=== PATIENT | female | born 1980 ===

== ENCOUNTER 2022-05-29 11:21 | Outpatient (REF) | payer MEDICAID, SELFPAY ==
[2022-05-29 16:21] LABS: Abs Immature Grans 0.01 10^3/uL (0.0-0.06); Absolute Basophil Count 0.05 10^3/uL (0.0-0.2); Absolute Eosinophil Count 0.45 10^3/uL (0.0-0.7); Absolute Lymphocyte Count 2.06 10^3/uL (1.2-3.4); Absolute Monocyte Count 0.43 10^3/uL (0.1-0.8); Absolute Neutrophil Count 4.22 10^3/uL (1.2-6.7); Basophils % 0.7; Eosinophils % 6.2; HCT 48.3 % (36.0-46.0); HGB 15.6 g/dL (11.2-15.7); Immature Grans % 0.1; Lymphocytes % 28.5; MCH 29.8 pg (27.0-33.0); MCHC 32.3 % (32.0-36.0); MCV 92 fL (80-95); MPV 11.1 fL (8.0-11.0); Neutrophils % 58.5; Platelet Count 306 10^3/uL (130-400); RBC 5.23 10^6/uL (3.93-5.22); RDW 13.5 % (11.7-14.6); RDW-SD 46.4 fL; WBC 7.22 10^3/uL (4.4-10.8)
[2022-05-29 16:40] LABS: ALT 48 U/L (14-59); AST 23 U/L (15-37); Albumin 3.9 g/dL (3.4-5.0); Alkaline Phosphatase 69 U/L (46-116); Anion Gap 10.1 mmol/L (3-11); BUN 14 mg/dL (7-18); Bilirubin, Total 0.5 mg/dL (0.2-1.0); CO2 26.9 mmol/L (21.0-32.0); CREATININE 0.9 mg/dL (0.55-1.02); Calcium 9.4 mg/dL (8.5-10.1); Chloride 105 mmol/L (98-107); Estimated GFR 82.88 (mL/min/1.73m2); Glucose 105 mg/dL (74-106); Potassium 4.7 mmol/L (3.5-5.1); Sodium 142 mmol/L (136-145); TSH (W/Ref FT4) 1.14 uIU/mL (0.36-3.74); Total Protein 7.8 g/dL (6.4-8.2)
== END 2022-05-29 11:22 | disposition home or self-care (01) ==
LOC: LBN 11:21
PROVIDERS: Visit Provider Nurse Practitioner Family
DX: R00.2 Palpitations (principal)
CPT/HCPCS: 80053; 84443; 85025

== ENCOUNTER 2022-07-06 09:26 | Outpatient (CLI) | payer MEDICAID, SELFPAY ==
--- NOTE | 2022-07-06 09:30 | CER_ITS ---
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 Minimum was 41, maximum 154 There were rare isolated premature ventricular contractions There was no atrial fibrillation, no high-grade AV block, no SVT, no pauses greater than 3 seconds Patient's symptoms were reported which corresponded to rare PVCs and sinus tachycardia
== END 2022-07-06 09:27 | disposition home or self-care (01) ==
LOC: CARDOPNVT 09:26
PROVIDERS: Visit Provider Internal Medicine Cardiovascular Disease
DX: I49.3 Ventricular premature depolarization (principal); R00.0 Tachycardia, unspecified